=== PATIENT | female | born 1955 | race African-American/Black ===

== ENCOUNTER 2019-03-10 11:45 | Inpatient (IN) | payer MEDICARE, MEDICAID ==
[~2019-03-10] VITALS: Ht 170.2 cm; Wt 129.7 kg
[2019-03-10 13:31] LABS: BASOPHILS % 1.6 % (0.0-2.0); EOSINOPHILS % 1.4 % (0.0-5.0); HEMATOCRIT. 37.1 % (36.0-48.0); HEMOGLOBIN. 11.8 g/dL (12.0-16.0); LYMPHOCYTES % 21.6 % (20.0-50.0); MEAN CORPUSCULAR HEMOGLOBIN 25.9 pg (28.0-32.0); MEAN CORPUSCULAR VOLUME 81.1 fL (81.0-99.0); MEAN PLATELET VOLUME 9.2 fl (7.4-10.4); MONOCYTES % 11.4 % (2.0-8.0); PLATELET 414 x1000/uL (130-400); RED BLOOD CELL COUNT 4.57 mill/uL (4.2-5.4); RED CELL DISTRIBUTION WIDTH 17.6 % (11.6-14.6)
[2019-03-10 13:36] LABS: CHLORIDE 107 mEq/L (98-107); PROTHROMBIN TIME 10.2 sec (9.6-11.0)
[2019-03-10 13:40] LABS: ETHANOL BLOOD < 10 mg/dL
[2019-03-10 14:33] LABS: CLARITY URINE CLEAR (CLEAR); COLOR URINE YELLOW (YELLOW); KETONES URINE NEGATIVE (NEGATIVE); LEUKOCYTE ESTERASE URINE NEGATIVE (NEGATIVE); NITRITE URINE NEGATIVE (NEGATIVE); OCCULT BLOOD URINE NEGATIVE (NEGATIVE); PROTEIN URINE TRACE (NEGATIVE); SPECIFIC GRAVITY URINE 1.018 (1.005-1.030)
[2019-03-10 15:09] LABS: *AMPHETAMINES SCREEN URINE NEGATIVE (NEGATIVE); *BARBITURATES SCREEN URINE NEGATIVE (NEGATIVE); *BENZODIAZEPINES SCREEN URINE NEGATIVE (NEGATIVE); *COCAINE SCREEN URINE NEGATIVE (NEGATIVE); CANNABINOID URINE SCREEN NEGATIVE (NEGATIVE); METHADONE URINE SCREEN NEGATIVE (NEGATIVE); PHENCYCLIDINE URINE SCREEN NEGATIVE (NEGATIVE)
[2019-03-10 15:10] LABS: OPIATES URINE SCREEN NEGATIVE (NEGATIVE)
[2019-03-10] MEDS ORDERED: ASPIRIN 325MG EC TABLET PO ONE (17:30)
[2019-03-10] MEDS ORDERED: AMLODIPINE 5MG TABLET PO ONE (17:30)
[2019-03-10] MEDS ORDERED: CLONIDINE 0.1MG TABLET PO ONE (19:45)
[2019-03-10 20:25] VITALS: BP 173/86
[2019-03-10] MEDS ORDERED: DEXTROSE 50% WATER 50ML SYRINGE IV PRN (22:30)
[2019-03-10] MEDS ORDERED: HYDROCODONE/ACETAMINOPHEN 5/325MG TABLET PO PRN (22:30)
[2019-03-10] MEDS ORDERED: ALLO100T PO (23:03)
[2019-03-10] MEDS ORDERED: AMLO10TA4 PO (23:03)
[2019-03-10] MEDS ORDERED: METF1000 PO (23:03)
[2019-03-10] MEDS ORDERED: VERA100C4 PO (23:03)
[2019-03-10] MEDS ORDERED: FURO20TA4 PO (23:03)
[2019-03-10] MEDS ORDERED: RANI-633 PO (23:03)
[2019-03-10] MEDS ORDERED: LOVA40TA73 PO (23:03)
[2019-03-10] MEDS ORDERED: PNEUMOCOCCAL 23-VAL P-SAC VAC 0.5 ML IM ONE (23:45)
[2019-03-11] VITALS: BP 170/88
[2019-03-11] MEDS ORDERED: CLONIDINE 0.1MG TABLET PO PRN ×2 (01:15)
[2019-03-11 04:00] VITALS: BP 168/99
[2019-03-11] MEDS: BLOOD SUGAR DIAGNOSTIC STRIP TEST SCH ×3 (06:31→17:02)
[2019-03-11] MEDS: INSULIN LISPRO 100 UNITS/ML SUBCUT SCH ×3 (06:31→17:02)
[2019-03-11] MEDS ORDERED: METFORMIN HCL 500MG TABLET PO SCH (07:40)
[2019-03-11 08:00] VITALS: BP 173/95
[2019-03-11] MEDS ORDERED: IOHEXOL-350 100 ML BOTTLE ONE (08:25)
[2019-03-11] MEDS ORDERED: AMLODIPINE 10MG TABLET PO SCH (09:00)
[2019-03-11] MEDS ORDERED: ENOXAPARIN 30MG/0.3ML SYR SUBCUT SCH (09:00)
[2019-03-11] MEDS ORDERED: ASPIRIN 325MG EC TABLET PO SCH (09:00)
[2019-03-11] MEDS ORDERED: LOSARTAN POTASSIUM 50 MG TABLET PO SCH (09:00)
[2019-03-11] MEDS ORDERED: ASPI-1079 PO (11:03)
[2019-03-11] MEDS ORDERED: POTA8CAP10 MT (11:03)
[2019-03-11 12:00] VITALS: BP 148/86
[2019-03-11] MEDS ORDERED: LOSARTAN POTASSIUM 100 MG TABLET PO SCH (14:00)
[2019-03-11 15:18] VITALS: BP 150/89
[2019-03-11 15:45] VITALS: BP 150/89
== END 2019-03-11 17:44 | disposition home or self-care (01) | DRG 123 ==
LOC: ER 11:45 → 8WST 17:49 → EDBEDREQ 17:54 → EDBEDREQTM 17:54 → ENRESERV 18:32
PROVIDERS: ADMIT Internal Medicine; ATTEND Internal Medicine
DX: H34.9 Unspecified retinal vascular occlusion (principal); Z68.41 Body mass index [BMI] 40.0-44.9, adult; I10 Essential (primary) hypertension; E11.9 Type 2 diabetes mellitus without complications; J45.909 Unspecified asthma, uncomplicated; E78.5 Hyperlipidemia, unspecified; E66.9 Obesity, unspecified; H34.8192 Central retinal vein occlusion, unspecified eye, stable; H54.61 Unqualified visual loss, right eye, normal vision left eye; Z90.710 Acquired absence of both cervix and uterus; Z71.3 Dietary counseling and surveillance; Z98.891 History of uterine scar from previous surgery
CPT/HCPCS: 36415; 70496; 70498; 70551; 71045; 80061; 80305; 80320; 82962; 83036; 84443; 90732; 93005; 93306; 97166; 99285; J1650; Q9967; G0480